=== PATIENT | female | born 1985 | race Caucasian/White ===

== ENCOUNTER 2024-06-10 15:14 | Outpatient (CLI) | payer MEDICAID, SELFPAY | END 2024-06-10 15:15 | disposition home or self-care (01) | PROVIDERS: PCP Family Medicine; Visit Provider Obstetrics & Gynecology | DX: R61 Generalized hyperhidrosis (principal); F52.0 Hypoactive sexual desire disorder | CPT/HCPCS: 84270; 84402; 84403; 84443 ==